=== PATIENT | female | born 1990 | race Two or more races ===

== ENCOUNTER 2018-08-21 12:08 | Outpatient (CLI) | payer OTHER, MEDICAID ==
--- NOTE | 2018-08-22 22:06 | Ultrasound Report ---
Reason: TEST POSITIVE Procedure Date: 08/21/2018 Accession Number: [id number] / [id number] Procedure: US - OB First Trimester CPT Code: FULL RESULT: EXAM: FIRST TRIMESTER OBSTETRIC ULTRASOUND (Less than 11 weeks) EXAM DATE: 08/21/2018 01:00 PM. CLINICAL HISTORY: test positive. LMP: 06/30/2018. COMPARISONS: None. TECHNIQUE: Transabdominal only ultrasound examination with static image documentation. CLINICAL DATES: EGA 7 weeks 3 days with AVERY 04/06/2019 based on LMP. ASSESSMENT: Gestational Sac: Single intrauterine. Embryo: CRL (crown-rump length) 8 mm = 6 weeks 6 days with an AVERY of 04/10/2019. Cardiac activity: 145 beats per minute. Yolk sac: 3 mm. Amniotic fluid: Not accurately assessed at this gestational age. Early placenta: Not visible at this gestational age. Other: No perigestational fluid collection demonstrated. MATERNAL STRUCTURES: Uterus: Anteverted. Unremarkable. Cervix: Closed. Right Ovary/Adnexa: The ovary measures 6.3 x 2.4 x 4.3 cm, volume 33.7 cc. At least 2 hypoechoic right ovarian cysts measuring 2.8 x 2 x 2.4 cm and 2.9 x 2.5 x 3.1 cm respectively. No concerning features are noted. Otherwise, right ovary and adnexa are normal. Left Ovary/Adnexa: The ovary measures 3.3 x 2.3 x 2.7 cm, volume 10.9 cc. Hypoechoic left ovarian cyst measures 2.8 x 2 x 2.4 cm. No mural nodules or thickened septations are noted. Free Fluid: None. Other: None. IMPRESSION: 1. Single viable intrauterine at EGA 6 weeks 6 days with AVERY 04/10/2019 based on crown-rump length, which is concordant with clinical dates. 2. Assigned dating is AVERY 04/06/2019 based on LMP. 3. No complications such as a subchorionic hemorrhage. 4. Hypoechoic bilateral ovarian cysts without concerning features. Otherwise, both ovaries and adnexa are normal. RADIA
== END 2018-08-21 12:09 | disposition home or self-care (01) ==
LOC: DI 12:08
PROVIDERS: ATTEND Nurse Practitioner Obstetrics & Gynecology
DX: O34.81 Maternal care for other abnormalities of pelvic organs, first trimester (principal); N83.202 Unspecified ovarian cyst, left side; N83.201 Unspecified ovarian cyst, right side; Z3A.01 Less than 8 weeks gestation of pregnancy
CPT/HCPCS: 76801

== ENCOUNTER 2018-09-22 16:36 | Outpatient (CLI) | payer OTHER, MEDICAID ==
[2018-09-23 15:04] LABS: MUDS CUTOFF CONCENTRATIONS CUTOFF CONC BELOW:
[2018-09-23 15:11] LABS: BILIRUBIN,URINE NEGATIVE (NEGATIVE); GLUCOSE, URINE (UA) NEGATIVE (NEGATIVE); KETONES,URINE (UA) NEGATIVE (NEGATIVE); LEUKOCYTE ESTERASE, URINE NEGATIVE (NEGATIVE); NITRITE,URINE NEGATIVE (NEGATIVE); OCCULT BLOOD,URINE NEGATIVE (NEGATIVE); PROTEIN,URINE NEGATIVE (NEGATIVE); UROBILINOGEN,URINE 0.2 (NORMAL) E.U./dL (NORMAL)
[2018-09-23 15:13] LABS: CLARITY,URINE CLOUDY (CLEAR)
[2018-09-23 15:20] LABS: RBC,URINE None Seen /HPF (0-5); SQUAMOUS EPITHELIAL CELL,UR RARE Squamous (<= Few)
[2018-09-23 15:21] LABS: AMORPHOUS SEDIMENT,UR Few /LPF; BACTERIA,URINE None Seen /HPF (None Seen)
[2018-09-23 15:22] LABS: AMPHETAMINE SCREEN,URINE NEGATIVE (NEGATIVE); BENZODIAZEPINES SCREEN, URINE NEGATIVE (NEGATIVE); COCAINE SCREEN URINE NEGATIVE (NEGATIVE); METHADONE SCREEN, URINE NEGATIVE (NEGATIVE); METHAMPHETAMINES SCREEN, URINE NEGATIVE (NEGATIVE); OPIATE SCREEN, URINE NEGATIVE (NEGATIVE); OXYCODONE SCREEN, URINE NEGATIVE (NEGATIVE); PROPOXYPHENE SCREEN, URINE NEGATIVE (NEGATIVE); TRICYCLIC ANTIDEPRESSANT,URINE NEGATIVE (NEGATIVE)
[2018-09-23 20:26] LABS: TRICHOMONAS VAGINALIS DNA NEGATIVE (NEGATIVE)
== END 2018-09-22 23:59 | disposition home or self-care (01) ==
LOC: LAB.R 16:36
PROVIDERS: ATTEND Nurse Practitioner Obstetrics & Gynecology
DX: Z36.89 Encounter for other specified antenatal screening (principal)
CPT/HCPCS: 80306; 81001; 81599; 85025; 86762; 86803; 86850; 86900; 86901; 87086; 87340; 87389; 87491; 87591; 87661

== ENCOUNTER 2018-09-23 16:54 | Outpatient (CLI) | payer OTHER, MEDICAID ==
[2018-09-23 17:09] LABS: BASOPHILS % (AUTO) 0.4 %; EOSINOPHILS % (AUTO) 0.2 %; HGB - HEMOGLOBIN 11.5 g/dL (12.0-16.0); LYMPHOCYTES # (AUTO) 2.2 10^3/uL (1.5-3.5); MEAN CORPUSCULAR HEMOGLOBIN 26.6 pg (27.0-31.0); MEAN CORPUSCULAR HGB CONC 32.6 g/dL (32.0-36.0); MEAN CORPUSCULAR VOLUME 81.7 fL (81.0-99.0); MONOCYTES # (AUTO) 0.5 10^3/uL (0.0-1.0); MONOCYTES % (AUTO) 5.3 %; NEUTROPHILS # (AUTO) 6.5 10^3/uL (1.5-6.6); NEUTROPHILS % (AUTO) 69.7 %; PLT - PLATELET COUNT 284 10^3/uL (130-450); RED BLOOD COUNT 4.32 10^6/uL (4.20-5.40); RED CELL DISTRIBUTION WIDTH 16.5 % (12.0-15.0); WHITE BLOOD COUNT 9.4 x10^3/uL (4.8-10.8)
[2018-09-24 13:25] LABS: HEPATITIS C ANTIBODY NON-REACTIVE (NON-REACTIVE)
[2018-09-24 13:27] LABS: HIV AG/AB 4TH GEN NON-REACTIVE (NON-REACTIVE)
[2018-09-24 13:30] LABS: HEPATITIS B SURFACE ANTIGEN NON-REACTIVE (NON-REACTIVE)
== END 2018-09-23 16:55 | disposition home or self-care (01) ==
LOC: LAB 16:54
PROVIDERS: ATTEND Nurse Practitioner Obstetrics & Gynecology
DX: Z36.89 Encounter for other specified antenatal screening (principal)
CPT/HCPCS: 36415; 80306; 81001; 81599; 85025; 86592; 86762; 86803; 86850; 86900; 86901; 87340; 87389; 87491; 87591; 87661

== ENCOUNTER 2018-10-26 08:22 | Outpatient (CLI) | payer OTHER, MEDICAID ==
[2018-10-26 09:09] LABS: VBG PH 7.381 (7.31-7.41)
[2018-10-26 09:25] LABS: ALBUMIN 3.4 g/dL (3.2-5.5); BILIRUBIN,TOTAL 0.6 mg/dL (0.2-1.0); CREATININE 0.6 mg/dL (0.4-1.0); TOTAL PROTEIN 6.7 g/dL (6.7-8.2)
[2018-10-26 09:35] LABS: FERRITIN 8.5 ng/mL (11.0-306.8)
[2018-10-26 10:17] LABS: FOLATE > 49.60 ng/mL (5.90 - >24.8)
== END 2018-10-26 08:23 | disposition home or self-care (01) ==
LOC: LAB 08:22
PROVIDERS: ATTEND Obstetrics & Gynecology
DX: O09.899 Supervision of other high risk pregnancies, unspecified trimester (principal); Z98.84 Bariatric surgery status
CPT/HCPCS: 36415; 80053; 81511; 81599; 82306; 82330; 82607; 82728; 82746; 83540; 84466

== ENCOUNTER 2018-11-03 10:14 | Outpatient (CLI) | payer OTHER, MEDICAID ==
--- NOTE | 2018-11-08 09:56 | Ultrasound Report ---
Reason: SCREENING,SUPERVISION OF OTHER HIGH RISK Procedure Date: 11/03/2018 Accession Number: [id number] / [id number] Procedure: US - OB Detailed Eval CPT Code: FULL RESULT: EXAM: COMPLETE OBSTETRICAL ULTRASOUND EXAM DATE: 11/03/2018 10:19 AM. CLINICAL HISTORY: anatomic survey. COMPARISON: 08/21/2018. TECHNIQUE: Real-time sonographic evaluation of the fetus performed by the crop or livestock tenant farmer. Multiple employment representative static images were saved for review. Transabdominal imaging only. DATING: Established EGA 18 weeks 0 days with AVERY 04/06/2019 based on LMP. EGA 17 weeks 3 days with AVERY 04/10/2019 based on prior ultrasound. EGA 17 weeks 4 days with AVERY 04/09/2019 based on the current ultrasound. GENERAL EVALUATION Espinosa . Cardiac activity: 153 bpm. movement: Visualized. Presentation: Variable. Placenta: Posterior position. No evidence for previa. Umbilical cord: 3 vessel cord. Central placental cord origin. Amniotic fluid: Subjectively normal. MVP 3.0 cm. RAVI = 9.0 cm. BIOMETRY Bi-Parietal Diameter (BPD): 3.45 cm, 16 weeks 5 days Head Circumference (HC): 14.08 cm, 17 weeks 3 days Abdominal Circumference (AC): 12.46 cm, 18 weeks 1 day Femur Length (FL): 2.59 cm, 17 weeks 6 days Estimated Weight: 214 g, 37.6 percentile. ANATOMY The intracranial structures, profile, spine, 4 chamber heart and left ventricular outflow tract, stomach, abdominal wall and cord insertion, diaphragm, bladder, and extremities were visualized and demonstrate no abnormality. The right ventricular outflow tract, kidneys, and nose/lips are not visualized. MATERNAL STRUCTURES Uterus: Unremarkable. Cervix: Long and closed. Cervical length 5.1 cm. Right ovary/adnexa: Unremarkable. Left ovary/adnexa: Unremarkable. Free fluid: None. IMPRESSION: 1. Espinosa live intrauterine with gestational age 17 weeks 4 days based on current ultrasound. 2. Estimated weight is within expected limits for assigned dating. 3. Normal anatomic survey except for anatomic limitations listed above. No anatomic abnormalities are detected at this time. RADIA
== END 2018-11-03 10:15 | disposition home or self-care (01) ==
LOC: DI 10:14
PROVIDERS: ATTEND Obstetrics & Gynecology
DX: O09.892 Supervision of other high risk pregnancies, second trimester (principal); Z3A.17 17 weeks gestation of pregnancy; Z36.89 Encounter for other specified antenatal screening; Z98.84 Bariatric surgery status
CPT/HCPCS: 76811

== ENCOUNTER 2018-11-13 08:52 | Outpatient (CLI) | payer OTHER, MEDICAID ==
--- NOTE | 2018-11-18 05:38 | Ultrasound Report ---
Reason: SUPERVISION OF OTHER HIGH RISK , ANTENATA Procedure Date: 11/13/2018 Accession Number: [id number] / [id number] Procedure: US - OB F/U or Repeat CPT Code: FULL RESULT: EXAM: FOLLOW-UP OBSTETRICAL ULTRASOUND EXAM DATE: 11/13/2018 09:52 AM. CLINICAL HISTORY: Incomplete anatomy COMPARISON: 11/03/2018. TECHNIQUE: Real-time sonographic evaluation of the fetus performed by the checking department supervisor. Multiple service center representative static images were saved for review. DATING: Established EGA 19 weeks 3 days with AVERY 04/06/2019 based on LMP. EGA weeks/days with AVERY based on LMP/prior ultrasound/other. EGA weeks/days with AVERY based on the current ultrasound. GENERAL EVALUATION Espinosa . Cardiac activity: 150 bpm. movement: Visualized. Presentation: Cephalic. Placenta: Posterior position. Amniotic fluid: Normal. RAVI 9 cm. MVP 3.9 cm. ANATOMY The right ventricular outflow tract, kidneys, nose and lips appear unremarkable. IMPRESSION: 1. Unremarkable completion of the anatomic survey. RADIA
== END 2018-11-13 08:53 | disposition home or self-care (01) ==
LOC: DI 08:52
PROVIDERS: ATTEND Obstetrics & Gynecology
DX: O09.892 Supervision of other high risk pregnancies, second trimester (principal); Z36.89 Encounter for other specified antenatal screening; Z3A.19 19 weeks gestation of pregnancy
CPT/HCPCS: 76816

== ENCOUNTER 2019-01-13 11:49 | Outpatient (CLI) | payer OTHER, MEDICAID ==
[2019-01-13 12:14] LABS: HGB - HEMOGLOBIN 10.5 g/dL (12.0-16.0); MEAN CORPUSCULAR HEMOGLOBIN 28.2 pg (27.0-31.0); MEAN CORPUSCULAR HGB CONC 32.3 g/dL (32.0-36.0); MEAN CORPUSCULAR VOLUME 87.1 fL (81.0-99.0); MEAN PLATELET VOLUME 10.8 fL (7.9-10.8); RED BLOOD COUNT 3.73 10^6/uL (4.20-5.40); RED CELL DISTRIBUTION WIDTH 13.2 % (12.0-15.0); WHITE BLOOD COUNT 8.7 x10^3/uL (4.8-10.8)
[2019-01-13 16:56] LABS: HB2 TOTAL 10.5 g/dL; HEMOGLOBIN A1C 0.38 g/dL; HEMOGLOBIN A1C % 5.5 % (4.6-6.2)
== END 2019-01-13 11:50 | disposition home or self-care (01) ==
LOC: LAB 11:49
PROVIDERS: ATTEND Nurse Practitioner Obstetrics & Gynecology
DX: Z36.89 Encounter for other specified antenatal screening (principal)
CPT/HCPCS: 36415; 83036; 85027; 86850

== ENCOUNTER 2019-01-18 11:35 | Outpatient (CLI) | payer OTHER, MEDICAID ==
--- NOTE | 2019-01-19 09:39 | Ultrasound Report ---
Reason: SUPERVISION OF HIGH RISK PREG, HX BARIATRIC SURG Procedure Date: 01/18/2019 Accession Number: [id number] / [id number] Procedure: US - OB F/U or Repeat CPT Code: Final Report FULL RESULT: EXAM: FOLLOW-UP OBSTETRICAL ULTRASOUND EXAM DATE: 01/18/2019 01:08 PM. CLINICAL HISTORY: Supervision of high risk , history of bariatric surgery. COMPARISON: OB F/U OR REPEAT 12/22/2018 3:11 PM. TECHNIQUE: Real-time sonographic evaluation of the fetus performed by the new order clerk. Multiple brewery representative static images were saved for review. DATING: Established EGA 28 weeks 6 days with AVERY 04/06/2019 based on working due date/LMP. EGA 28 weeks 4 days with AVERY 04/08/2019 based on the current ultrasound. GENERAL EVALUATION Espinosa . Cardiac activity: 151 bpm. movement: Visualized. Presentation: Cephalic. Placenta: Posterior position. Amniotic fluid: Normal. RAVI 13.8 cm. MVP 3.8 cm. BIOMETRY Bi-Parietal Diameter (BPD): 7.1 cm, 28 weeks 6 days Head Circumference (HC): 26.9 cm, 29 weeks 2 days Abdominal Circumference (AC): 23.0 cm, 27 weeks 3 days Femur Length (FL): 5.4 cm, 28 weeks 5 days Estimated Weight: 1176 g, 15th percentile for 20 weeks 6 days. MATERNAL STRUCTURES Cervix is long and closed, 4.4 cm transabdominally. IMPRESSION: 1. Espinosa live intrauterine with gestational age 28 weeks 6 days based on LMP. 2. Estimated weight is within expected limits for assigned dating. 3. Normal interval growth compared to date of prior biometry. RADIA
== END 2019-01-18 11:36 | disposition home or self-care (01) ==
LOC: DI 11:35
PROVIDERS: ATTEND Nurse Practitioner Obstetrics & Gynecology
DX: O09.899 Supervision of other high risk pregnancies, unspecified trimester (principal); Z3A.28 28 weeks gestation of pregnancy; Z98.84 Bariatric surgery status
CPT/HCPCS: 76816

== ENCOUNTER 2019-03-01 14:49 | Outpatient (CLI) | payer OTHER, MEDICAID ==
[2019-03-01 15:07] LABS: VBG PH 7.443 (7.31-7.41)
[2019-03-01 15:27] LABS: ALBUMIN 3.4 g/dL (3.2-5.5); BILIRUBIN,TOTAL 0.6 mg/dL (0.2-1.0); CREATININE 0.6 mg/dL (0.4-1.0); TOTAL PROTEIN 6.9 g/dL (6.7-8.2)
== END 2019-03-01 14:50 | disposition home or self-care (01) ==
LOC: LAB 14:49
PROVIDERS: ATTEND Nurse Practitioner Obstetrics & Gynecology
DX: Z98.84 Bariatric surgery status (principal)
CPT/HCPCS: 36415; 80053; 82306; 82330; 82728; 82746; 83540; 84466

== ENCOUNTER 2019-03-04 08:40 | Outpatient (CLI) | payer OTHER, MEDICAID ==
--- NOTE | 2019-03-04 10:32 | Ultrasound Report ---
Reason: HX OF BARIATRIC SURGERY, SUPER OF HIGH RISK PREG Procedure Date: 03/04/2019 Accession Number: [id number] / [id number] Procedure: US - OB F/U or Repeat CPT Code: Final Report FULL RESULT: EXAM: FOLLOW-UP OBSTETRICAL ULTRASOUND EXAM DATE: 03/04/2019 08:42 AM. CLINICAL HISTORY: Third trimester and unigravida female. High risk . COMPARISON: OB F/U OR REPEAT 01/18/2019 1:08 PM. TECHNIQUE: Real-time sonographic evaluation of the fetus performed by the ribbon lap machine tender. Additional transvaginal imaging to more accurately evaluate cervical length/placental position/etc. Multiple product support representative static images were saved for review. DATING: Established EGA 35 weeks and 2 days with AVERY 04/06/2019 based on LMP. EGA 34 weeks 5 days with AVERY 04/10/2019 based on prior ultrasound. EGA 33 week 5 days with AVERY 04/17/2019 based on the current ultrasound. GENERAL EVALUATION Espinosa . Cardiac activity: 136 bpm. movement: Visualized. Presentation: Cephalic. Placenta: Posterior position. Amniotic fluid: Normal. RAVI 8.8 cm. MVP 3.6 cm. BIOMETRY Bi-Parietal Diameter (BPD): 8.5 cm, 34 weeks 2 days Head Circumference (HC): 30.9 cm, 34 weeks 4 days Abdominal Circumference (AC): 28.8 cm, 32 weeks 5 days Femur Length (FL): 6.5 cm, 33 weeks 2 days Estimated Weight: 2152 g, 7th percentile for 35 week 2 days, previously 15 percentile. Umbilical cord Doppler: Umbilical cord Doppler analysis was done measuring 2.9 approximately, 3.7 in the midportion, and 2.8 distally. IMPRESSION: 1. Espinosa live intrauterine with gestational age 35 weeks 2 days based on established dates. 2. Small for gestational age suggesting potential intrauterine growth restriction with estimated weight now corresponding to the 7th percentile rank, 15th percentile rank previously. 3. cord Doppler demonstrates S/D ratios in the 50-95th percentile rank and the proximal and distal segment. S/D ratio measures greater than 95th percentile rank in the midportion, however, this may be due to suboptimal tracing. Close clinical follow-up is recommended. SHA The critical result notification system was initiated by Dr. Cynthia Nelson at 10:18 AM on 03/04/2019. The above critical result findings were discussed with Keila Oviedo's RN Angelica Gregorio by Dr. Cynthia Nelson at 10:31 AM on 03/04/2019.
== END 2019-03-04 08:41 | disposition home or self-care (01) ==
LOC: DI 08:40
PROVIDERS: ATTEND Nurse Practitioner Obstetrics & Gynecology
DX: O36.5930 Maternal care for other known or suspected poor fetal growth, third trimester, not applicable or unspecified (principal); Z3A.35 35 weeks gestation of pregnancy; O09.893 Supervision of other high risk pregnancies, third trimester; Z98.84 Bariatric surgery status
CPT/HCPCS: 76816

== ENCOUNTER 2019-03-11 09:01 | Outpatient (CLI) | payer OTHER, MEDICAID ==
[2019-03-11 09:28] VITALS: BP 125/77
--- NOTE | 2019-03-11 16:19 | PROCEDURE REPORT ---
- HPI Diagnosis/Indication for NST: Other Current EDU 04/06/19 Gestation 36 Weeks and 2 Days 1 Para 0 Vital Signs Temperature 37.2 C 03/11/19 09:15 Heart Rate 75 03/11/19 09:15 Respiratory Rate 16 03/11/19 09:15 Blood Pressure 125/77 03/11/19 09:15 O2 Saturation 99 03/11/19 09:15 Temperature 37.2 C 03/11/19 09:15 Heart Rate 75 03/11/19 09:15 Respiratory Rate 16 03/11/19 09:15 Blood Pressure 125/77 03/11/19 09:15 O2 Saturation 99 03/11/19 09:15 - NST Procedure NST Procedure Start Date 03/11/19 Start Time 09:13 Stop Time 09:35 Vibroacoustic Stimulation Used No Patient States Movement Yes - Results and Plan Findings/Impression: Reta presents today to [facility] at 36.2wks gestation for scheduled NST due to s uspected IUGR. NST reactive. Baseline 140s, moderate variability, +accels, no decels No contractions appreciated via tocometry. FINAL DIAGNOSIS: 28yo @ 36.2wks gestation Suspected IUGR
== END 2019-03-11 09:45 | disposition home or self-care (01) ==
LOC: WFO 09:01 → FBP 09:06 → WFO 09:45
PROVIDERS: ATTEND Nurse Practitioner Obstetrics & Gynecology
DX: Z34.03 Encounter for supervision of normal first pregnancy, third trimester (principal)
CPT/HCPCS: 59025

== ENCOUNTER 2019-03-16 08:00 | Outpatient (CLI) | payer OTHER, MEDICAID ==
[2019-03-16 20:28] LABS: TRICHOMONAS VAGINALIS DNA NEGATIVE (NEGATIVE)
== END 2019-03-16 23:59 | disposition home or self-care (01) ==
LOC: LAB.R 08:00
PROVIDERS: ATTEND Nurse Practitioner Obstetrics & Gynecology
DX: Z36.85 Encounter for antenatal screening for Streptococcus B (principal); Z11.3 Encounter for screening for infections with a predominantly sexual mode of transmission
CPT/HCPCS: 87491; 87591; 87661; 87797

== ENCOUNTER 2019-03-22 08:33 | Outpatient (CLI) | payer OTHER, MEDICAID ==
[2019-03-22 08:47] VITALS: BP 128/77
--- NOTE | 2019-03-22 13:03 | PROCEDURE REPORT ---
- HPI Diagnosis/Indication for NST: Intrauterine growth restriction Current EDU 04/06/19 Gestation 37 Weeks and 6 Days 1 Para 0 Vital Signs Temperature 36.9 C 03/22/19 08:46 Heart Rate 69 03/22/19 08:46 Respiratory Rate 18 03/22/19 08:46 Blood Pressure 128/77 03/22/19 08:46 O2 Saturation 99 03/22/19 08:46 Temperature 36.9 C 03/22/19 08:46 Heart Rate 69 03/22/19 08:46 Respiratory Rate 18 03/22/19 08:46 Blood Pressure 128/77 03/22/19 08:46 O2 Saturation 99 03/22/19 08:46 - NST Procedure NST Procedure Start Date 03/22/19 Start Time 08:49 Stop Time 09:19 Vibroacoustic Stimulation Used No Patient States Movement Yes - Results and Plan Plan: Reta presents today for scheduled NST secondary to intrauterine growth restriction noted on growth and RAVI at 36wks. MFM f/u revealed growth WNL. NST performed 03/22/2019 NST read 03/22/2019 NST reactive, FHR baseline 140s, moderate variability, + accels no decels Pt released home with precautions. Advised to keep her regularly scheduled visit today 03/22/2019. Pt verbalized understanding and agrees to above plan. She denies further questions or concerns at this time.
== END 2019-03-22 09:25 | disposition home or self-care (01) ==
LOC: WFO 08:33 → FBP 08:37 → WFO 09:25
PROVIDERS: ATTEND Nurse Practitioner Obstetrics & Gynecology
DX: O36.5930 Maternal care for other known or suspected poor fetal growth, third trimester, not applicable or unspecified (principal); Z3A.37 37 weeks gestation of pregnancy
CPT/HCPCS: 59025

== ENCOUNTER 2019-03-29 09:00 | Outpatient (CLI) | payer OTHER, MEDICAID ==
[2019-03-29 09:42] VITALS: BP 131/80
--- NOTE | 2019-03-29 13:49 | PROCEDURE REPORT ---
- HPI Diagnosis/Indication for NST: Intrauterine growth restriction Current EDU 04/06/19 Gestation 38 Weeks and 6 Days 1 Para 0 Vital Signs Temperature 36.8 C 03/29/19 09:15 Heart Rate 68 03/29/19 09:15 Respiratory Rate 18 03/29/19 09:15 Blood Pressure 131/80 H 03/29/19 09:15 O2 Saturation 100 03/29/19 09:15 Temperature 36.8 C 03/29/19 09:15 Heart Rate 68 03/29/19 09:15 Respiratory Rate 18 03/29/19 09:15 Blood Pressure 131/80 H 03/29/19 09:15 O2 Saturation 100 03/29/19 09:15 - NST Procedure NST Procedure Start Date 03/29/19 Start Time 09:13 Stop Time 09:34 Patient States Movement Yes - Results and Plan Plan: Reta presents to [facility] for scheduled NST secondary to previous diagnosis of IUGR which has been cleared with MFM and was ruled out as IUGR. Twice weekly NSTs have continued. NST reactive. NST baseline 130s, moderate variability, + accels, no decels Pt released home with precautions. Advised to keep f/u visit which is scheduled for tomorrow. Pt verbalized understanding and denies further questions or concerns at this time.
== END 2019-03-29 09:41 | disposition home or self-care (01) ==
LOC: WFO 09:00 → FBP 09:07 → WFO 09:41
PROVIDERS: ATTEND Nurse Practitioner Obstetrics & Gynecology
DX: O36.5930 Maternal care for other known or suspected poor fetal growth, third trimester, not applicable or unspecified (principal); Z3A.38 38 weeks gestation of pregnancy
CPT/HCPCS: 59025

== ENCOUNTER 2019-04-01 08:51 | Outpatient (CLI) | payer OTHER, MEDICAID ==
[2019-04-01 09:13] VITALS: BP 122/85
--- NOTE | 2019-04-22 12:21 | PROCEDURE REPORT ---
- HPI Diagnosis/Indication for NST: Intrauterine growth restriction Current EDU 04/06/19 Gestation 39 Weeks and 2 Days 1 Para 0 Vital Signs Temperature 37.1 C 04/01/19 09:06 Heart Rate 64 04/01/19 09:06 Respiratory Rate 16 04/01/19 09:06 Blood Pressure 122/85 H 04/01/19 09:06 O2 Saturation 99 04/01/19 09:06 Temperature 37.1 C 04/01/19 09:06 Heart Rate 64 04/01/19 09:06 Respiratory Rate 16 04/01/19 09:06 Blood Pressure 122/85 H 04/01/19 09:06 O2 Saturation 99 04/01/19 09:06 - NST Procedure NST Procedure Start Date 04/01/19 Start Time 09:15 Stop Time 09:45 Vibroacoustic Stimulation Used No Patient States Movement Yes - Results and Plan Findings/Impression: Reactive NST. Plan: Induction at 39 weeks
== END 2019-04-01 09:53 | disposition home or self-care (01) ==
LOC: WFO 08:51 → FBP 08:56 → WFO 09:53
PROVIDERS: ATTEND Obstetrics & Gynecology
DX: O36.5930 Maternal care for other known or suspected poor fetal growth, third trimester, not applicable or unspecified (principal); Z3A.39 39 weeks gestation of pregnancy
CPT/HCPCS: 59025

== ENCOUNTER 2019-04-03 14:11 | Outpatient (CLI) | payer OTHER, MEDICAID ==
[2019-04-03 14:28] VITALS: BP 130/79
--- NOTE | 2019-04-03 18:41 | Ultrasound Report ---
Reason: C/O decreased FM Procedure Date: 04/03/2019 Accession Number: [id number] / [id number] Procedure: US - OB Biophysical Profile CPT Code: Final Report FULL RESULT: EXAM: BIOPHYSICAL PROFILE EXAM DATE: 04/03/2019 05:39 PM. CLINICAL HISTORY: C/O decreased FM. COMPARISON: None. TECHNIQUE: Real-time sonographic evaluation of the fetus performed by the clinical programmer. Multiple telemarketing sales representative static images were saved for review. DATING: Established EGA 39 weeks/4 days with AVERY [id number]. GENERAL EVALUATION Espinosa . Cardiac activity: 136 bpm. movement: Visualized. Presentation: Cephalic. Placenta: Posterior position. No evidence for previa or abruption. Amniotic fluid: Normal. RAVI 13.9 cm. MVP 3.7 cm. BIOPHYSICAL PROFILE Breathing = 2 Movement = 2 Tone = 2 Amniotic Fluid = 2 Total 09/16 IMPRESSION: 1. Espinosa live intrauterine with gestational age 39 weeks 4 days. 2. Biophysical profile score 8 of 8. SHA
--- NOTE | 2019-04-03 19:48 | PROVIDER PROGRESS NOTE ---
- HPI Chief Complaint: Decreased movement Current : Current EDU 04/06/19 Gestation 39 Weeks and 4 Days 1 Para 0 Vital Signs Temperature 36.8 C 04/03/19 14:27 Heart Rate 78 04/03/19 14:27 Respiratory Rate 16 04/03/19 14:27 Blood Pressure 130/79 04/03/19 14:27 O2 Saturation 99 04/03/19 14:27 Temperature 36.8 C 04/03/19 14:32 Heart Rate 78 04/03/19 14:32 Respiratory Rate 18 04/03/19 14:32 Blood Pressure 130/79 04/03/19 14:32 O2 Saturation 99 04/03/19 14:32 - Procedures OB Procedure Performed: NST Diagnosis/Indication for NST: Decreased movement NST Procedure: NST Procedure Start Date 04/03/19 Start Time 14:26 Stop Time 15:26 Vibroacoustic Stimulation Used No Patient States Movement No: none since am - Plan Plan: Reta presents to [facility] with complaints of contractions which started early this morning in addition to some light vaginal spotting. In addition she reports she has felt decreased movement since this morning. She did feel the baby move a normal amount last night. NST performed 04/03/2019 NST read 04/03/2019 NST initially minimal variability, only 10 x 10 accelerations noted, no decelerations. BPP ordered and was noted to be 8/8. Upon arrival SVE 2/60/-3, posterior. While awaiting BPP results the pt was placed back on monitoring and was then noted to reactive. Baseline 140s, moderate variability, + accels, no decels Repeat SVE unchanged and pt released home with precautions. She has been getting twice weekly NSTs for the past several weeks due to suspected IUGR which was ruled out by MFM consult. She has NST scheduled 04/05/2019 and she was advised to keep this appt.
[2019-04-03] MEDS ORDERED: ROPIVACAINE 0.2% 200 MG/100 ML BAG EP ONE (23:53)
== END 2019-04-03 18:05 | disposition home or self-care (01) ==
LOC: WFO 14:11 → FBP 14:15 → WFO 18:05
PROVIDERS: ATTEND Nurse Practitioner Obstetrics & Gynecology
DX: O36.8130 Decreased fetal movements, third trimester, not applicable or unspecified (principal); Z3A.39 39 weeks gestation of pregnancy
CPT/HCPCS: 59025; 76819; 99213; 99214

== ENCOUNTER 2019-04-03 22:03 | Inpatient (IN) | payer OTHER, MEDICAID ==
[2019-04-03] MEDS ORDERED: SODIUM CHLORIDE FLUSH 0.9% 10 ML SYRINGE IVP PRN (22:50)
[2019-04-03 23:13] LABS: BASOPHILS % (AUTO) 0.3 %; EOSINOPHILS % (AUTO) 0.2 %; HGB - HEMOGLOBIN 12.7 g/dL (12.0-16.0); LYMPHOCYTES # (AUTO) 2.1 10^3/uL (1.5-3.5); LYMPHOCYTES % (AUTO) 23.4 %; MEAN CORPUSCULAR HEMOGLOBIN 28.9 pg (27.0-31.0); MEAN CORPUSCULAR HGB CONC 33.5 g/dL (32.0-36.0); MEAN CORPUSCULAR VOLUME 86.1 fL (81.0-99.0); MONOCYTES # (AUTO) 0.6 10^3/uL (0.0-1.0); MONOCYTES % (AUTO) 6.2 %; NEUTROPHILS # (AUTO) 6.2 10^3/uL (1.5-6.6); NEUTROPHILS % (AUTO) 69.3 %; PLT - PLATELET COUNT 210 10^3/uL (130-450); RED CELL DISTRIBUTION WIDTH 15.2 % (12.0-15.0); WHITE BLOOD COUNT 8.9 x10^3/uL (4.8-10.8)
[2019-04-03] MEDS: LACTATED RINGERS 1,000 ML IV SCH (23:22)
--- NOTE | 2019-04-04 00:32 | ANESTHESIA ---
Pre-Anesthesia VS, & Labs - Diagnosis Active labor - Procedure Continuous labor epidural Height 5 ft 3 in Weight (kg) 83.915 kg - NPO Other - Is Patient ?: Yes - Lab Results Current Lab Results: Laboratory Tests 04/03/19 22:50: WBC 8.9, RBC 4.40, Hgb 12.7, Hct 37.9, MCV 86.1, MCH 28.9, MCHC 33.5, RDW 15.2 H, Plt Count 210, MPV 13.0 H, Neut # (Auto) 6.2, Lymph # (Auto) 2.1, [place] # (Auto) 0.6, Eos # (Auto) 0.0, Baso # (Auto) 0.0, Absolute Nucleated RBC 0.00, Nucleated RBC % 0.0 Fish Bones: 04/03/19 22:50 Home Medications and Allergies Active Medications Lactated Ringer's (Lr) 1,000 mls @ 150 mls/hr IV .[id number] [facility] Last Admin: 04/03/19 23:22 Dose: 150 mls/hr Sodium Chloride (Normal Saline Flush 0.9%) 10 ml IVP PRN PRN PRN Reason: NEEDED PER PROVIDER ORDERS Sodium Chloride (Normal Saline Flush 0.9%) 10 ml IVP 0100,0900,1700 [facility] Anes History & Medical History - Anesthetic History Anesthesia Complications: reports: No previous complications Family history of Anesthesia Complications: Denies Family history of Malignant Hyperthermia: Denies - Medical History Cardiovascular: reports: None Pulmonary: reports: None Gastrointestinal: reports: None Urinary: reports: None Neuro: reports: None Musculoskeletal: reports: None Endocrine/Autoimmune: reports: None Blood Disorders: reports: None Skin: reports: None Smoking Status: Never smoker Psychosocial: reports: No issues indicated Exam General: Alert, Oriented x3, Cooperative, Moderate distress Dental: WNL Mouth Opening: Greater than 4 Fingerbreadths Neck Mobility: Normal Mallampati classification: II Thyromental Distance: greater than 6 cm Plan Anesthesia Type: Epidural Consent for Procedure(s) Verified and Reviewed: Yes Code Status: Attempt Resuscitation ASA classification: 2-Mild systemic disease Is this case an emergency?: Yes
[2019-04-04] MEDS ORDERED: ROPIVACAINE 0.2% 200 MG/100 ML BAG EP PRN (00:33)
[2019-04-04] MEDS ORDERED: METOCLOPRAMIDE 10 MG/2 ML VIAL IVP PRN (00:34)
[2019-04-04] MEDS ORDERED: ONDANSETRON 4 MG/2 ML VIAL IVP PRN ×2 (00:34)
[2019-04-04] MEDS ORDERED: ePHEDrine 50 MG/ML VIAL IVP PRN (00:34)
[2019-04-04] MEDS ORDERED: NALBUPHINE 10 MG/ML AMP IVP PRN ×2 (00:34)
[2019-04-04] MEDS ORDERED: diphenhydrAMINE INJ 50 MG/ML VIAL IVP PRN ×2 (00:34)
[2019-04-04] MEDS ORDERED: NALOXONE 0.4 MG/ML VIAL IVP PRN (00:34)
[2019-04-04] MEDS ORDERED: LACTATED RINGERS 500 ML IV ONE (00:34)
[2019-04-04] MEDS ORDERED: SODIUM CHLORIDE FLUSH 0.9% 10 ML SYRINGE IVP SCH (01:00)
[2019-04-04] MEDS: LACTATED RINGERS 1,000 ML IV SCH ×2 (01:19→09:24)
--- NOTE | 2019-04-04 02:39 | HISTORY & PHYSICAL EXAMINATION ---
Admit History - Visit Reason Visit Reason: Contractions - : 1 Parity: 0 Premature: 0 Ectopic: 0 : 0 Care: positive: [facility] Risk/History: positive: None Complications This : positive: None Smoking Status: Never smoker - Mother's Labs Mother's Blood Type: positive: A Mother's RH: positive: Positive GBS: positive: Group B Step Negative Rubella Status: positive: Immune Review of Systems - Constitutional Constitutional: denies: Fatigue, Chills, Malaise - Eyes Eyes: denies: Blurred vision, Spots in vision, Dipolpia - Cardiovascular Cariovascular: denies: Chest pain, Edema - Respiratory Respiratory: denies: SOB at rest - Gastrointestinal Gastrointestinal: denies: Change in bowel habits - Integumentary Integumentary: denies: Rash, Pruritis - Neurological Neurological: denies: Headache Physical - Abdominal Exam Contraction Frequency (min/apart): 2-4 Contraction Intensity: positive: Strong Uterine Resting Tone: positive: Soft - Monitoring Heart Rate Baseline: 130 Strip Review: positive: Category I - Presentation Presentation: positive: Vertex - Vaginal Exam Membranes: positive: Membranes intact Dilation (in cm): 4 Effacement (%): 100 Station: positive: -1 Cervical Position: positive: Midposition - Speculum Exam Speculum Exam Performed: positive: No Plan for Labor - Plan For Labor I expect patient to be DC'd or transferred within 96 hours.: Yes Plan for Labor: HPI: Reta is a 28yo @ 39.5wk gestation by 6wk U/S c/w LMP dating who presented on 04/03/2019 with complaints of contractions which have progressively increased in frequency and intensity since early yesterday morning. She reports the contractions began to become difficult to cope with at approximately 2100. She denies vaginal bleeding or leakage of fluid and reports +FM. Upon arrival she was noted to be 3/90/-3, vertex with bulging bag of chahal and was not coping well with contractions that occurred every 5-7 minutes. She was admitted for management and requested and epidural. FHR Category I. She has been a patient of [facility] through the duration of her which has been complicated by her history of bariatic surgery. She has had nutrition labs drawn every trimester which have remained WNL as well as q 4 week growth ultrasounds. Her growth ultrasounds remained within normal limits until 03/08/2019 at which time she was noted to have an EFW in the 7th percentile. Doppler flow studies were completed and WNL. An MFM consult was initiated and at that visit EFW was measuring 34th percentile and MFM ruled out IUGR. She has continued twice weekly NSTs since that time as a precautionary measure and these have all been reactive. Dating criteria: LMP 06/30/2018 Initial ultrasound @ 6.6wks gestation c/w LMP dating Serial exams consistently measuring size less than dates (refer to above HPI and serial growth U/S) OBHx: G1: Current Medications: PNV Allergies: PNV PMHx: Anemia Surgical Hx: Gastric sleeve 2013; Rt breast biopsy- benign 2015; breast reconstruction 2015 Social Hx: Never smoker, no ETOH or IVDA. 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 Family Hx: Dementia- father; bone cancer- PGM labs: A+/rubella immune Quad screen - negative Nutrition labs q trimester WNL Glucola deferred secondary to bariatric surgery hx -Fasting BG ranges from 81- 96; 1 hour pp ranging from 89-168. Reviewed target ranges and advised pt to continue tracking blood glucose and bring log with her to next visit. Advised limiting her intake of carbohydrates and sugars. GBS/GC CT NEG x 3 Ultrasounds: FAS 11/03/2018 WNL with the exception of poor visualization of RVOT, kidneys, and nose/lips. Posterior placenta, no previa. 3VC. F/u 11/13/2018 completion WNL Growth and RAVI 12/22/2018 EFW 13th percentile, RAVI 15.4; 01/18/2019 f/u growth and RAVI EFW 15th%tile, RAVI 13.8; 03/04/2019 Growth 7th percentile. Doppler flow demonstrates S/D ratios in the 50-95th percentile rank and the proximal and distal segment. S/D ratio measures greater than 95th percentile rank in the midportion. MFM consult initiated and twice weekly NSTs initiated. 03/08/2019 MFM ultrasound EFW 2631g (34th percentile) =WNL; abdominal circumference (14%) and is appropriate for gestational age. RAVI WNL. Posterior placenta, no previa. Immunizations: Tdap 01/12/2019 Influenza immunization 11/23/2018 Physical Exam: Normocephalic, atraumatic Heart RRR w/o M/G/R LUngs CTAB Abdomen gravid, soft, nontender EFW 2800g Contractions palpate moderate to strong every 4-5 min with soft resting tone FHR baseline 130s, moderate variability, + accels, no decels Most recent SVE 4/100/-1, vertex with bulging BOW Bilateral LE's no edema Assessment: 28yo @ 39.5wks gestation by LMP c/w 6.6wk U/S Active labor GBS neg Suspected IUGR r/o by [facility] growth ultrasound at 36wks gestation Plan: Admit for expectant management Epidural per pt request Continuous monitoring Consider AROM with next SVE Anticipate
--- NOTE | 2019-04-04 03:21 | PROVIDER PROGRESS NOTE ---
Labor Progress Note - Uterine Monitoring Uterine Monitoring Mode: positive: External toco Contraction Frequency (min/apart): 3-6 Contraction Intensity: positive: Strong Uterine Resting Tone: positive: Soft - Monitoring Monitor Mode: positive: External ultrasound Heart Rate Baseline: 130 Heart Rate Variability: positive: Moderate (6-25 bmp) Accelerations: positive: Present, 15x15 Decelerations: positive: None Strip Review: positive: Category I - Vaginal Exam Dilation (in cm): 5 Effacement (%): 100 Station: 0 Cervical Position: Anterior - Labor Progress Note Labor Progress Note/Additional Text: S: Feeling comfortable with epidural. Slightly right side lying position in bed. Mood is good. Not able to feel contractions. O: FHR baseline 130s, moderate variability, + accels, no decels Contractions palpate firm every 5-6 min with soft resting tone SVE 5/100/0, vertex AROM at 0318 noted to be a moderate amount of clear fluid A: 28yo @ 39.5wks gestation Active labor GBS neg P: Continue expectant management Continuous monitoring Encouraged position changes in bed Anticipate
--- NOTE | 2019-04-04 05:42 | PROVIDER PROGRESS NOTE ---
Labor Progress Note - Uterine Monitoring Uterine Monitoring Mode: positive: External toco Contraction Frequency (min/apart): 3 Contraction Intensity: positive: Strong Uterine Resting Tone: positive: Soft - Monitoring Monitor Mode: positive: External ultrasound Heart Rate Baseline: 130 Heart Rate Variability: positive: Moderate (6-25 bmp) Accelerations: positive: Present, 15x15 Decelerations: positive: None Strip Review: positive: Category I - Vaginal Exam Dilation (in cm): 6 Effacement (%): 100 Station: 0 - Labor Progress Note Labor Progress Note/Additional Text: S: Feeling increased pressure and discomfort with contractions. 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 Hoping some rotation on peanut ball can help relieve some of the pressure. O: FHR baseline 130s, moderate variability, + accels, no decels Contractions palpate strong every 3 minutes with soft resting tone SVE 6/100/0, vertex A: 28yo @ 39.5wks gestation Active labor GBS neg SROM x 2.5 hours P: Continue expectant management Continuous monitoring Encouraged rotation in bed on peanut ball every 30 minutes Anticipate
[2019-04-04] MEDS ORDERED: ROPIVACAINE 0.2% PF 20ML VIAL ONE (06:45)
[2019-04-04] MEDS ORDERED: fentaNYL 100 MCG/2 ML VIAL ONE (06:45)
--- NOTE | 2019-04-04 06:56 | CONSULTATION NOTE ---
Consultation Report: Called to remove air from line and give a top off bolus. Patient c/o severe labor pain and right kidney pain. Pump increased to 12 ml/hr and from 4 to 5 ml PCEA bolus dose. In addition, 6 ml of .2% Ropivicaine plus 100 mcg fentanyl given via epidural line after negative aspiration. 5 minutes later patient stated her pain was significantly reduced.
[2019-04-04] MEDS ORDERED: LIDOCAINE-MPF 1% 30 ML VIAL ONE (08:54)
[2019-04-04] MEDS ORDERED: OXYTOCIN/SODIUM CHLORIDE 500 ML IV ONE (08:56)
[2019-04-04] MEDS ORDERED: OXYTOCIN/SODIUM CHLORIDE 500 ML IV SCH (09:00)
--- NOTE | 2019-04-04 09:06 | CONSULTATION NOTE ---
Consultation Report: RN called and requested a bolus for the patient. Went into she the patient. She appears fairly comfortable, but complains of pain "in her back" with each contraction. She has a sensory level of t8/t7 on the left side and t12 on the right side. No motor block. Bolused her with about 6ml of 1% lidocain after a negative aspiration.
--- NOTE | 2019-04-04 10:44 | CONSULTATION NOTE ---
Consultation Report: Call to [phone] for uncontrolled pain with contractions (reports of anterior lip). Pt moving in bed in what appears to be pain. Sensory level appreciated at L1 Bilat. Full motor intact. Epidural dosed with 10cc 1% Lidocaine after negative aspiration in 2 5cc doses. MD at bedside at completion of injection for exam. Pt states mild relief of pain and tolerated exam. Pt tolerated exam that found her with full dilation/effacement and ready to push. VSS throughout. Will be immediately available if needed.
[2019-04-04] MEDS ORDERED: ONDANSETRON ODT 4 MG TABLET TL PRN (11:35)
[2019-04-04] MEDS ORDERED: SIMETHICONE CHEW 80 MG TABLET PO PRN (11:35)
[2019-04-04] MEDS ORDERED: LACTATED RINGERS 1,000 ML IV SCH (12:00)
[2019-04-04] MEDS: ACETAMINOPHEN 500 MG TABLET PO PRN ×2 (12:07→20:06)
[2019-04-04] MEDS: DOCUSATE SODIUM 100 MG CAPSULE PO PRN ×2 (12:07→18:09)
[2019-04-04] MEDS: IBUPROFEN 600 MG TABLET PO SCH ×2 (12:07→18:05)
--- NOTE | 2019-04-04 12:10 | DELIVERY NOTE ---
Delivery Note - Labor Labor: positive: Augmented by oxytocin - Delivery Method Delivery Method: positive: Spontaneous vaginal delivery - Presentation Presentation: positive: Vertex - Nuchal Cord Nuchal Cord: positive: None - Anesthetic Anesthetic Type: - Amniotic Fluid Description Amniotic Fluid Description: positive: Clear - Episiotomy Type Episiotomy Type: positive: None - Laceration Laceration: positive: 2nd degree - Suture Suture Type: positive: Vicryl Suture Size: positive: 4-0 - Delivery Outcome Delivery Outcome: positive: Livebirth - [place] : positive: Placed in direct skin contact with mother, Bulb syringe, Stimulated, Warmed, [place] used - Cord Cord: positive: 3 vessels - Estimated Blood Loss Estimated Blood Loss (in cc): 200 - Post Delivery Events Post Delivery Events: positive: No post delivery events - Delivery Comments (Free Text/Narrative) Delivery Comments (Free Text/Narrative): STAGE I: Reta is a 28yo admitted @ 39.5wk gestation by 6wk U/S c/w LMP dating. She presented on 04/03/2019 with complaints of contractions which have progressively increased in frequency and intensity since early 04/02/09 Reports the contractions began to become difficult to cope with at approximately 2100. She denies vaginal bleeding or leakage of fluid and reports +FM. Upon arrival she was noted to be 3/90/-3, vertex with bulging bag of chahal. Epidural for pain management. Pitocin for augmentation. GBS negative. Progressed to complete at 10:41. FHR Category I. STAGE II: Patient pushed well for 8 minutes to deliver a viable male infant form vertex position. There was a 65 second shoulder dystocia relieved with a combination of Jossue, delivery of the posterior arm and rotation of the posterior shoulder. Left arm was posterior. Infant was delivered to maternal abdomen. Cord was clamped x2 and cut after pulsations had ceased. No nuchal cord. Apgars were 8/8, weight 3220. STAGE III: Placenta delivered with manual expression. It was examined and found to be intact.Small 2nd degree midline laceration was repaired in the usual sterile fashion in layers with 4-0 vicryl. A first degree vaginal sidewall laceration was repaired with a single figure of 8 suture using 4-0 Vicryl. Good hemostasis was noted. EBL 200 cc
[2019-04-05] MEDS: IBUPROFEN 600 MG TABLET PO SCH ×3 (01:25→16:07)
[2019-04-05] MEDS: DOCUSATE SODIUM 100 MG CAPSULE PO PRN (10:20)
--- NOTE | 2019-04-05 10:36 | PROVIDER PROGRESS NOTE ---
Subjective - Prog Note Date Prog Note Date: 04/05/19 Prog Note Time: 09:00 - Subjective Subjective: Patient in shower. Will return for bedside assessment Objective - Vital Signs/Intake & Output Vital Signs: Vital Signs x48h Temp Pulse Resp BP Pulse Ox 04/05/19 04:49 98.4 F 70 18 117/93 H 98 Intake & Output: Intake & Output 04/02/19 04/03/19 04/04/19 04/05/19 23:59 23:59 23:59 23:59 Intake Total 2507.5 500 Output Total 1100 Balance 1407.5 500 - Lab Results Fish Bones: 04/03/19 22:50
--- NOTE | 2019-04-05 12:06 | PROVIDER PROGRESS NOTE ---
Subjective - Subjective Subjective: S: Bonding well with baby. without difficulty. Pain well controlled with oral medications. Urinating with difficulty. Feeling good. Bleeding decreased and is light. supportive at the bedside. O: BP 117/93, T 36.9, HR 70, RR 18 Heart RRR w/o M/G/R, lungs CTAB, abdomen soft and nontedner with fundus firm at U-1, bilateral LE's no edema. A: 28yo -->P1 PPD#1 s/p TVSD viable male 2nd degree perineal laceration - intact P: Continue routine pp care and medications. Evaluate for discharge home tomorrow. Objective - Vital Signs/Intake & Output Vital Signs: Vital Signs x48h Temp Pulse Resp BP Pulse Ox 04/05/19 04:49 36.9 C 70 18 117/93 H 98 Intake & Output: Intake & Output 04/02/19 04/03/19 04/04/19 04/05/19 23:59 23:59 23:59 23:59 Intake Total 2507.5 500 Output Total 1100 Balance 1407.5 500 - Lab Results Fish Bones: 04/03/19 22:50
[2019-04-05] MEDS: ACETAMINOPHEN 500 MG TABLET PO PRN ×2 (12:21→20:04)
[2019-04-06] MEDS: IBUPROFEN 600 MG TABLET PO SCH ×2 (01:54→09:00)
[2019-04-06] MEDS: ACETAMINOPHEN 500 MG TABLET PO PRN (06:54)
--- NOTE | 2019-04-06 07:25 | PROVIDER PROGRESS NOTE ---
Subjective - Subjective Subjective: FINAL PROGRESS NOTE: S: BOnding well with baby. without difficulty. Pain well controlled with oral medications. Bleeding decreased and is light. Feeling well overall and excited about being able to go home today. O: BP 135/73, T 37.1, RR 16, HR 76 Heart RRR w/o M/G/R, lungs CTAB, abdomen soft and nontender with fundus firm at U-1, perineum intact and repair with mild edema, light lochia rubra, bilateral LE's no edema A: 28yo -->P1 PPD#2 s/p TSVD of viable male infant 2nd degree perineal laceration - intact P: Reviewed pp self care and warning s/sx. Advised continuation of PNV while . Advised continuation of ibuprofen and tylenol OTC PRN pain F/u with myself in the clinic in 1 week for support visit and in 3 weeks for routine pp visit or sooner PRN. Pt verbalized understanding and agrees to above plan. She denies further questions or concerns at this time. Objective - Vital Signs/Intake & Output Vital Signs: Vital Signs x48h Temp Pulse Resp BP Pulse Ox 04/06/19 00:02 37.1 C 76 16 135/73 H 98 Intake & Output: Intake & Output 04/03/19 04/04/19 04/05/19 04/06/19 23:59 23:59 23:59 23:59 Intake Total 2507.5 1100 800 Output Total 1100 Balance 1407.5 1100 800 - Lab Results Fish Bones: 04/03/19 22:50
--- NOTE | 2019-04-06 07:31 | Discharge Plan ---
Discharge Plan Problem Reviewed?: Yes Disposition: Home, Self Care Condition: Good Diet: Regular Activity Restrictions: No Restrictions Shower Restrictions: No Driving Restrictions: No Weight Bearing: Full Weight No Smoking: If you smoke, Please STOP! Call for help. Follow-up with: Keila Oviedo CNM, ARNP [Provider Admit Priv/Credential] -
[2019-04-06 07:53] VITALS: BP 128/72
--- NOTE | 2019-04-06 08:11 | DISCHARGE SUMMARY ---
Physician: MYRTLE Givens DATE OF ADMISSION: 04/03/2019 DATE OF DISCHARGE: 04/06/2019 DIAGNOSES ON ADMISSION 1. A 28-year-old, G1, P0 at 39.5 weeks gestation. 2. Active labor. 3. Group B Streptococcus negative. DIAGNOSES ON DISCHARGE 1. A 28-year-old, G1, P1-0-0-1, status post spontaneous vaginal delivery on 04/04/2019. 2. . 3. Normal recovery. HISTORY OF PRESENT ILLNESS: She is a patient of [facility] who presented on 020 with complaints of contractions. Upon arrival, she was noted to be 3 cm dilated, 90% effaced, -3 station, vertex position with a bulging bag of chahal. heart rate category 1 throughout labor . Epidural per maternal request. She progressed to spontaneously deliver a viable male at ap proximately 10:49. Apgars were 8 and 8 at 1 and 5 minutes respectively. There was a 65 second shoul roman dystocia, which was relieved with a combination of Jossue and deliver the posterior arm. EBL 200 mL. The perineum, vagina and cervix were inspected and found to have a second-degree laceration, which was repaired using 4-0 Vicryl in standard fashion under sterile conditions. She has been doing well in her course. She is urinating without difficulty and her lochia is normal. Her pain is well controlled with oral medications. She will be discharged home today on day 2 with instructions to continue her vitamin while , and to cont inue ibuprofen and Tylenol [id number] as needed for pain management. She intends to follow up with myself in 1 week for support and in 3 weeks for routine visit or sooner if needed. She has been given precautions to call if she has any worsening fevers, chills, abdominal pa in, increased bleeding or foul-smelling vaginal lochia. TD: 04/06/2019 07:33
[2019-04-06] MEDS: DOCUSATE SODIUM 100 MG CAPSULE PO PRN (09:00)
--- NOTE | 2019-04-06 15:20 | Labor Flowsheet ---
Labor Flowsheet Datetime Report Generated by CPN: 04/06/2019 15:20 Datetime: 04/04/2019 12:44 VITAL SIGNS NBP Sys/Che/Mean (mmHg): 121 : 79 : 89 Pulse: 169 LaborFlag: Labor Datetime: 04/04/2019 10:49 SpO2 (%): 100 Datetime: 04/04/2019 10:47 UTERINE ACTIVITY Monitor Mode: External Frequency (min): 1-3 Quality: Moderate Duration (sec): 60-90 Pattern: Normal: <= 5 Contractions in 10 Minutes Resting Tone (Palpate): Relaxed FHR Baseline Rate : 135 FHR Baseline Changes: Bradycardia Variability: Moderate 6-25 bpm Decelerations: Prolonged Category: Category II Comments: prolonged decel to 90's prior to delivery Datetime: 04/04/2019 10:41 VAGINAL EXAM Dilatation (cm): 10.0 STAGE 2 Pushing: Urge to Push Pushing Position: Pushing with Contractions Pushing Progress: Descent with Pushing Stage 2 Comments: Dr. Montes at bedside pushing with patient Datetime: 04/04/2019 10:35 MEDICATIONS Pitocin (milliunits): Discontinued Datetime: 04/04/2019 10:30 Accelerations: 15X15 Datetime: 04/04/2019 10:26 Anesthesia Comments: Robert here for epidural bolus Datetime: 04/04/2019 10:22 COMMUNICATION Provider Notified (Name): Dr. 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 Pain Assessment Comments: anesthesia notified for bolus Datetime: 04/04/2019 08:30 Effacement (%): 90 Datetime: 04/04/2019 07:44 Pain Coping: Sleeping Datetime: 04/04/2019 06:50 Epidural Procedure: Loading Dose Epidural Procedure Other: Pump Started Datetime: 04/04/2019 06:49 Pain Type: Crushing Pain Location: Abdomen; Back Datetime: 04/04/2019 06:41 Respirations: 18 Datetime: 04/04/2019 06:07 Anesthesia Level Check: T8- Ribs Datetime: 04/04/2019 05:42 Patient Care Comments: with peanut ball Datetime: 04/04/2019 05:14 ANESTHESIA Anesthesia Plans: Epidural Anesthesia Interview: E Datetime: 04/04/2019 05:13 Stage of : Labor Pain Presence: None/Denies Datetime: 04/04/2019 03:30 Monitor Interventions for FHR: Ultrasound Adjusted Datetime: 04/04/2019 03:16 Membranes Rupture Method: Artificial Amniotic Fluid Color: Clear Amniotic Fluid Amount: Moderate Vaginal Bleeding: None Cervix, Position: Anterior Datetime: 04/04/2019 02:14 MATERNAL ASSESSMENT Level of Consciousness: Fully Conscious DTR's/Clonus: No Clonus Headache: Denies Breath Sounds, Left: Clear and Equal Breath Sounds, Right: Clear and Equal Nausea/Vomiting: Denies RUQ Epigastric Pain: Denies Datetime: 04/04/2019 01:10 I/O Interventions: [place] Cath Inserted Datetime: 04/04/2019 01:00 Membrane Status: Bulging TEACHING Instructional Method: Verbal; Verbalized Understanding Plan of Care: Plan of Care Discussed Unit Routine: [place] to Room; Call [place]; Bed Labor/Induction: Labor Stages Pain Management: Epidural PTL/PROM: Hydration Datetime: 04/04/2019 00:08 Temperature Route: Oral Pain Goal: 0 Datetime: 04/04/2019 00:06 PROCEDURE TIME OUT Procedure Type: 1205 Datetime: 04/04/2019 00:00 Procedure Verify: Correct Patient Identity; Correct Side and Site are Marked; Accurate Procedure Co nsent Form Epidural Positioning: Sitting
== END 2019-04-06 14:30 | disposition home or self-care (01) | DRG 806 ==
LOC: WFO 22:03 → FBP 22:04 → WFO 22:49 → FBP 22:50 → OBS 04-04 14:27
PROVIDERS: ADMIT Nurse Practitioner Obstetrics & Gynecology; ATTEND Nurse Practitioner Obstetrics & Gynecology
PROC: 10E0XZZ Delivery of Products of Conception, External Approach (ICD-10-PCS; principal; 2019-04-04)
DX: O99.62 Diseases of the digestive system complicating childbirth (principal); K95.09 Other complications of gastric band procedure; Z37.0 Single live birth; O70.1 Second degree perineal laceration during delivery; O66.0 Obstructed labor due to shoulder dystocia; Z3A.39 39 weeks gestation of pregnancy; O36.8130 Decreased fetal movements, third trimester, not applicable or unspecified
CPT/HCPCS: 59025; 76819; 85025; 99212; 99213; A9270; G0378; J2795; J7120

== ENCOUNTER 2020-01-30 08:00 | Outpatient (CLI) | payer MEDICAID, OTHER ==
[2020-01-30 16:36] LABS: MUDS CUTOFF CONCENTRATIONS CUTOFF CONC BELOW:
[2020-01-30 16:48] LABS: AMPHETAMINE SCREEN,URINE NEGATIVE (NEGATIVE); BENZODIAZEPINES SCREEN, URINE NEGATIVE (NEGATIVE); COCAINE SCREEN URINE NEGATIVE (NEGATIVE); METHAMPHETAMINES SCREEN, URINE NEGATIVE (NEGATIVE); OPIATE SCREEN, URINE NEGATIVE (NEGATIVE); THC CANNABINOID SCREEN, URINE NEGATIVE (NEGATIVE); TRICYCLIC ANTIDEPRESSANT,URINE NEGATIVE (NEGATIVE)
[2020-01-30 16:49] LABS: BARBITURATE SCREEN,UR NEGATIVE (NEGATIVE); METHADONE SCREEN, URINE NEGATIVE (NEGATIVE); OXYCODONE SCREEN, URINE NEGATIVE (NEGATIVE); PROPOXYPHENE SCREEN, URINE NEGATIVE (NEGATIVE)
== END 2020-01-30 23:59 | disposition home or self-care (01) ==
LOC: LAB.WC 08:00
PROVIDERS: ATTEND Obstetrics & Gynecology
DX: Z32.01 Encounter for pregnancy test, result positive (principal)
CPT/HCPCS: 80306

== ENCOUNTER 2020-02-03 15:03 | Emergency (ER) | payer OTHER ==
--- NOTE | 2020-02-03 17:02 | ED Physician Documentation ---
History of Present Illness - Stated complaint Stated Complaint: FEMALE - Chief complaint Chief Complaint: Abd Pain - History obtained from History obtained from: Patient - Additonal information Additional information: 29-year-old female who is approximately 5 weeks comes to the emergency department with vaginal spotting and now heavy bleeding. Patient reports that she began having light spotting about 3 days ago but over the last 24 hours she has been having menstrual-like flow. Mild cramping but no focal abdominal pain. Patient's blood type is A positive LMP 12/27/2019 G1, P1. OB Dr. Keila Oviedo. Review of Systems Constitutional: denies: Fever, Chills Eyes: reports: Reviewed and negative Ears: reports: Reviewed and negative Throat: reports: Reviewed and negative Cardiac: reports: Reviewed and negative Respiratory: reports: Reviewed and negative GI: reports: Reviewed and negative : reports: Vaginal bleeding, Reviewed and negative. denies: Dysuria, Freque ncy, Hesitancy Skin: reports: Reviewed and negative Musculoskeletal: reports: Reviewed and negative Neurologic: reports: Generalized weakness PD PAST MEDICAL HISTORY - Past Medical History Cardiovascular: None Respiratory: None Neuro: None Endocrine/Autoimmune: None GI: None : None Musculoskeletal: None Derm: None - Allergies Allergies/Adverse Reactions: Allergies Allergy/AdvReac Type Severity Reaction Status Date / Time No Known Drug Allergies Allergy Verified 04/04/19 08:55 - Social History Smoking Status: Never smoker PD ED PE NORMAL - General General: Alert and oriented X 3, No acute distress - HEENT HEENT: PERRL - Cardiac Cardiac: RRR, No murmur - Respiratory Respiratory: Clear bilaterally - Abdomen Abdomen: Normal bowel sounds, Soft, Non tender, Non distended Results - Vitals Vitals: Vital Signs - 24 hr 02/03/20 02/03/20 15:21 17:54 Temperature 36.7 C 37.1 C Heart Rate 74 70 Respiratory 18 18 Rate Blood Pressure 129/74 131/87 H O2 Saturation 100 99 Oxygen O2 Source Room air - Labs Labs: Laboratory Tests 02/03/20 02/03/20 02/03/20 16:56 16:56 16:56 WBC 8.2 RBC 4.71 Hgb 11.9 L Hct 37.7 MCV 80.0 L MCH 25.3 L MCHC 31.6 L RDW 15.1 H Plt Count 340 MPV 11.7 H Neut # (Auto) 5.5 Lymph # (Auto) 2.2 [place] # (Auto) 0.4 Eos # (Auto) 0.0 Baso # (Auto) 0.0 Absolute Nucleated RBC 0.00 Nucleated RBC % 0.0 Sodium 136 Potassium 3.9 Chloride 102 Carbon Dioxide 24 Anion Gap 10.0 BUN 14 Creatinine 0.7 Estimated GFR (MDRD) 98 Glucose 94 Calcium 9.2 Total Bilirubin 0.7 AST 16 ALT 14 Alkaline Phosphatase 53 Total Protein 8.2 Albumin 4.6 Globulin 3.6 Albumin/Globulin Ratio 1.3 Lipase 40 HCG, Quant 675.67 Urine Color Urine Clarity Urine pH Ur Specific Axis Urine Protein Urine Glucose (UA) Urine Ketones Urine Occult Blood Urine Nitrite Urine Bilirubin Urine Urobilinogen Ur Leukocyte Esterase Urine RBC Urine WBC Ur Squamous Epith Cells Urine Bacteria Ur Microscopic Review Urine Culture Comments 02/03/20 17:33 WBC RBC Hgb Hct MCV MCH MCHC RDW Plt Count MPV Neut # (Auto) Lymph # (Auto) [place] # (Auto) Eos # (Auto) Baso # (Auto) Absolute Nucleated RBC Nucleated RBC % Sodium Potassium Chloride Carbon Dioxide Anion Gap BUN Creatinine Estimated GFR (MDRD) Glucose Calcium Total Bilirubin AST ALT Alkaline Phosphatase Total Protein Albumin Globulin Albumin/Globulin Ratio Lipase HCG, Quant Urine Color RED/BLOODY Urine Clarity CLOUDY Urine pH 6.0 Ur Specific Axis 1.025 Urine Protein 100 H Urine Glucose (UA) NEGATIVE Urine Ketones NEGATIVE Urine Occult Blood LARGE H Urine Nitrite NEGATIVE Urine Bilirubin NEGATIVE Urine Urobilinogen 0.2 (NORMAL) Ur Leukocyte Esterase NEGATIVE Urine RBC TNTC H Urine WBC 0-3 Ur Squamous Epith Cells MOD Squamous H Urine Bacteria Few Ur Microscopic Review INDICATED Urine Culture Comments NOT INDICATED - Rads (name of study) pelvic US Radiology: See rad report, Other (No findings of intrauterine . No secondary findings to suggest ectopic ) PD MEDICAL DECISION MAKING - ED course Complexity details: reviewed results, re-evaluated patient, considered differential, d/w patient ED course: 29-year-old female presents the emergency department with 3 days of what was initially light vaginal spotting but is now menstrual vaginal bleeding in early . Her serum hCG today is 675. This is well below the discriminatory threshold. Ultrasound did not reveal any findings of an intrauterine . In addition there were no signs of a ectopic . She has no focal lower pelvic pain. She will need to have her hormone levels repeated in 48 to 72 hour s. I have discussed with on-call OB Dr. Monets. She has arranged for the patient to come in Thursday to have her serial hCG repeated. She will also asked the clinic RN and Dr. Garduno to follow-up with the patient. Patient was advised to return to the emergency department if she has severe vaginal bleeding, feels faint or lightheaded, has a racing heart suddenly severe or different lower abdominal pain. Departure - Departure Disposition: Home, Self Care Clinical Impression: Threatened miscarriage in early , Vaginal bleeding affecting early Condition: Stable Record reviewed to determine appropriate education?: Yes Instructions: ED Miscarriage Poss Comments: You were seen today for vaginal bleeding in early . Your hormone level today is 675. At this level it is typically too low for us to see signs of in the uterus. We would like you to return on Thursday to have your hormone levels repeated. Dr. Montes has arranged for this to be done. The clinic nurse and Dr. Oviedo should be getting in contact with you early this week. At this time if you are having a miscarriage there is no treatment that is necessary. If you develop severe vaginal bleeding, have any fevers suddenly severe lower pelvic pain have a racing heart or feel faint please return immediately to the emergency department
[2020-02-03 17:12] LABS: BASOPHILS % (AUTO) 0.5 %; EOSINOPHILS % (AUTO) 0.1 %; HGB - HEMOGLOBIN 11.9 g/dL (12.0-16.0); LYMPHOCYTES # (AUTO) 2.2 10^3/uL (1.5-3.5); MEAN CORPUSCULAR HEMOGLOBIN 25.3 pg (27.0-31.0); MEAN CORPUSCULAR HGB CONC 31.6 g/dL (32.0-36.0); MEAN PLATELET VOLUME 11.7 fL (7.9-10.8); MONOCYTES # (AUTO) 0.4 10^3/uL (0.0-1.0); NEUTROPHILS # (AUTO) 5.5 10^3/uL (1.5-6.6); PLT - PLATELET COUNT 340 10^3/uL (130-450); RED BLOOD COUNT 4.71 10^6/uL (4.20-5.40); RED CELL DISTRIBUTION WIDTH 15.1 % (12.0-15.0); WHITE BLOOD COUNT 8.2 x10^3/uL (4.8-10.8)
[2020-02-03 17:26] LABS: ALBUMIN 4.6 g/dL (3.2-5.5); ALBUMIN/GLOBULIN RATIO 1.3 (1.0-2.2); BILIRUBIN,TOTAL 0.7 mg/dL (0.2-1.0); CALCIUM 9.2 mg/dL (8.5-10.3); CREATININE 0.7 mg/dL (0.4-1.0); TOTAL PROTEIN 8.2 g/dL (6.7-8.2)
[2020-02-03 17:47] LABS: BILIRUBIN,URINE NEGATIVE (NEGATIVE); GLUCOSE, URINE (UA) NEGATIVE (NEGATIVE); KETONES,URINE (UA) NEGATIVE (NEGATIVE); LEUKOCYTE ESTERASE, URINE NEGATIVE (NEGATIVE); NITRITE,URINE NEGATIVE (NEGATIVE); OCCULT BLOOD,URINE LARGE (NEGATIVE); PROTEIN,URINE 100 mg/dL (NEGATIVE); UROBILINOGEN,URINE 0.2 (NORMAL) E.U./dL (NORMAL)
[2020-02-03 17:51] LABS: CLARITY,URINE CLOUDY (CLEAR); RBC,URINE TNTC /HPF (0-5)
[2020-02-03 17:52] LABS: BACTERIA,URINE Few /HPF (None Seen); SQUAMOUS EPITHELIAL CELL,UR MOD Squamous (<= Few)
[2020-02-03 17:54] VITALS: BP 131/87
--- NOTE | 2020-02-03 18:34 | Ultrasound Report ---
PROCEDURE: OB Transvaginal INDICATIONS: vaginal bleeding 1st trimester OUTSIDE/PRIOR DATING DATA: Last menstrual period (LMP): 12/27/2019. LMP-based estimated date of delivery (AVERY): 10/02/2020. TECHNIQUE: Real-time scanning was performed of the fetus and maternal pelvic organs, with image documentation. T ransvaginal imaging was performed. COMPARISON: None. FINDINGS: There is a tiny intrauterine saclike structure measuring approximately 2.5 x 1.2 x 1.4 mm. This is visualized near the lower uterine segment. Endometrial thickness measured 18 mm with possibl e decidual reaction. Otherwise, no definite intrauterine gestation identified. Embryo: No definite intrauterine gestation. No pole. No cardiac activity identified. No yolk sac seen. Maternal organs: Left ovary measures 2.0 x 1.6 x 2.0 cm. Left ovarian volume measures approximately 3 .4 mL. No ovarian or adnexal mass lesions. Right ovary measures 3.0 x 2.3 x 4.3 cm with ovarian volum e of approximately 15.7 mL. There is a possible right corpus luteal cyst measuring 2.2 x 1.9 x 2.3 cm . No suspicious solid adnexal/ovarian mass. No evidence for abnormal pelvic free fluid or hemorrhage. Limited images through the kidneys demonstrate no hydronephrosis. IMPRESSION: 1. Tiny endometrial saclike structure noted in the lower uterine segment measuring approximately 0.2 cm in size. This is too small to further delineate. This may represent a very early gestational sac v ersus nabothian cyst. Recommend continued close clinical surveillance and serial quantitative hCG allie surements. Short interval follow-up imaging as needed. Although less likely, an ectopic not completely excluded given presence of a positive test. 2. Likely right corpus luteal cyst. No suspicious solid ovarian/adnexal mass lesions identified. Reviewed by: Adán Stevens MD on 02/03/2020 6:33 PM PST Approved by: Adán Stevens MD on 02/03/2020 6:33 PM PST Station ID: [id number]
== END 2020-02-03 18:43 | disposition home or self-care (01) ==
LOC: ED 15:03
DX: O20.0 Threatened abortion (principal); Z3A.01 Less than 8 weeks gestation of pregnancy
CPT/HCPCS: 36415; 80053; 81001; 81003; 83690; 84702; 85025; 86900; 86901; 87086; 99284

== ENCOUNTER 2020-02-06 08:00 | Outpatient (CLI) | payer OTHER | END 2020-02-06 08:01 | disposition home or self-care (01) | LOC: LAB 08:00 | PROVIDERS: ATTEND Obstetrics & Gynecology | DX: Z32.01 Encounter for pregnancy test, result positive (principal) | CPT/HCPCS: 36415; 84702 ==

== ENCOUNTER 2020-07-13 20:52 | Outpatient (CLI) | payer OTHER ==
--- NOTE | 2020-07-13 22:23 | Ultrasound Report ---
PROCEDURE: OB First Trimester INDICATIONS: + PREG TEST OUTSIDE/PRIOR DATING DATA: Last menstrual period (LMP): 04/24/2020. LMP-based estimated date of delivery (AVERY): 01/29/2021. First dating scan (date and location): 07/13/2020. Estimated date of delivery (AVERY) from first dating scan: 01/27/2021. The below data below was generated using the ultrasound generated AVERY of 01/27/2021 TECHNIQUE: Real-time scanning was performed of the fetus and maternal pelvic organs, with image documentation. COMPARISON: None FINDINGS: Embryo: There is a gestational sac in the uterine fundus measuring 5.9 cm mean sac diameter. Within the gestational sac there is a fetus measuring 4.9 cm crown-rump length. Average ultrasound age is 11 weeks 5 days. heart rate measured at 164 bpm. Small subchorionic hemorrhage measuring approxim ately 2.5 cm. Measurement variability in dating: +/- 4 weeks by LMP, +/- 7 days by mean sac diameter (use before 6 weeks gestation if crown-rump length not able to be measured), +/- 5 days by crown-rump length (6-12 weeks gestation). Maternal organs: Ovaries are normal. Left corpus luteum cyst.. IMPRESSION: Single live intrauterine gestation with average ultrasound age of 11 weeks 5 days. Reviewed by: Brenden Goetz MD on 07/13/2020 10:22 PM PDT Approved by: Brenden Goetz MD on 07/13/2020 10:22 PM PDT Station ID: [id number]
== END 2020-07-13 20:53 | disposition home or self-care (01) ==
LOC: DI 20:52
PROVIDERS: ATTEND Nurse Practitioner Obstetrics & Gynecology
DX: Z32.01 Encounter for pregnancy test, result positive (principal)

== ENCOUNTER 2020-07-17 08:00 | Outpatient (CLI) | payer OTHER, MEDICAID ==
[2020-07-17 21:06] LABS: CHLAMYDIA TRACHOMATIS DNA NEGATIVE (NEGATIVE); NEISSERIA GONORRHOEAE DNA NEGATIVE (NEGATIVE); TRICHOMONAS VAGINALIS DNA NEGATIVE (NEGATIVE)
== END 2020-07-17 23:59 | disposition home or self-care (01) ==
LOC: LAB.WC 08:00
PROVIDERS: ATTEND Nurse Practitioner Obstetrics & Gynecology
DX: Z11.3 Encounter for screening for infections with a predominantly sexual mode of transmission (principal)
CPT/HCPCS: 87491; 87591; 87661

== ENCOUNTER 2020-07-17 10:25 | Outpatient (CLI) | payer OTHER ==
[2020-07-17 10:56] LABS: BASOPHILS % (AUTO) 0.5 %; EOSINOPHILS % (AUTO) 0.3 %; HGB - HEMOGLOBIN 9.5 g/dL (12.0-16.0); LYMPHOCYTES # (AUTO) 2.3 10^3/uL (1.5-3.5); LYMPHOCYTES % (AUTO) 29.2 %; MEAN CORPUSCULAR HGB CONC 30.6 g/dL (32.0-36.0); MEAN CORPUSCULAR VOLUME 71.8 fL (81.0-99.0); MEAN PLATELET VOLUME 11.5 fL (7.9-10.8); MONOCYTES # (AUTO) 0.4 10^3/uL (0.0-1.0); MONOCYTES % (AUTO) 5.3 %; NEUTROPHILS # (AUTO) 5.1 10^3/uL (1.5-6.6); NEUTROPHILS % (AUTO) 64.6 %; PLT - PLATELET COUNT 382 10^3/uL (130-450); RED BLOOD COUNT 4.32 10^6/uL (4.20-5.40); RED CELL DISTRIBUTION WIDTH 16.9 % (12.0-15.0); WHITE BLOOD COUNT 7.9 x10^3/uL (4.8-10.8)
[2020-07-17 11:00] LABS: VBG PH 7.402 (7.31-7.41)
[2020-07-17 11:01] LABS: CALCIUM, IONIZED 1.13 mmol/L (1.15-1.33)
[2020-07-17 11:36] LABS: % IRON SATURATION 3 % (20-50); IRON 18 ug/dL (28-170); TOTAL IRON BINDING CAPACITY 519 ug/dL (250-450); TRANSFERRIN 371 mg/dL (192-382)
[2020-07-17 11:52] LABS: FERRITIN 4.9 ng/mL (11.0-306.8)
[2020-07-17 11:55] LABS: FOLATE 20.94 ng/mL (5.90 - >24.8)
[2020-07-20 09:56] LABS: HEPATITIS B SURFACE ANTIGEN NON-REACTIVE
[2020-07-20 09:58] LABS: HEPATITIS C ANTIBODY NON-REACTIVE
== END 2020-07-17 10:26 | disposition home or self-care (01) ==
LOC: LAB 10:25
PROVIDERS: ATTEND Nurse Practitioner Obstetrics & Gynecology
DX: Z34.90 Encounter for supervision of normal pregnancy, unspecified, unspecified trimester (principal); Z98.84 Bariatric surgery status; Z11.3 Encounter for screening for infections with a predominantly sexual mode of transmission
CPT/HCPCS: 36415; 82306; 82330; 82607; 82728; 82746; 83540; 84466; 85025; 86592; 86762; 86787; 86803; 86850; 86900; 86901; 87340; 87389; 87491; 87591; 87661

== ENCOUNTER 2020-08-16 08:00 | Outpatient (CLI) | payer OTHER, MEDICAID ==
[2020-08-16 15:58] LABS: MUDS CUTOFF CONCENTRATIONS CUTOFF CONC BELOW:
[2020-08-16 16:32] LABS: AMPHETAMINE SCREEN,URINE NEGATIVE (NEGATIVE); BARBITURATE SCREEN,UR NEGATIVE (NEGATIVE); BENZODIAZEPINES SCREEN, URINE NEGATIVE (NEGATIVE); COCAINE SCREEN URINE NEGATIVE (NEGATIVE); METHADONE SCREEN, URINE NEGATIVE (NEGATIVE); METHAMPHETAMINES SCREEN, URINE NEGATIVE (NEGATIVE); OPIATE SCREEN, URINE NEGATIVE (NEGATIVE); OXYCODONE SCREEN, URINE NEGATIVE (NEGATIVE); PROPOXYPHENE SCREEN, URINE NEGATIVE (NEGATIVE); THC CANNABINOID SCREEN, URINE NEGATIVE (NEGATIVE); TRICYCLIC ANTIDEPRESSANT,URINE NEGATIVE (NEGATIVE)
== END 2020-08-16 23:59 | disposition home or self-care (01) ==
LOC: LAB.WC 08:00
PROVIDERS: ATTEND Advanced Practice Midwife
DX: Z34.90 Encounter for supervision of normal pregnancy, unspecified, unspecified trimester (principal)
CPT/HCPCS: 80306; 87077; 87086; 87181

== ENCOUNTER 2020-08-29 10:46 | Outpatient (CLI) | payer OTHER ==
[2020-08-29 20:12] LABS: BACTERIAL VAGINOSIS DNA NEGATIVE (NEGATIVE); CANDIDA GLABRATA DNA NEGATIVE (NEGATIVE); CANDIDA GROUP DNA NEGATIVE (NEGATIVE); CANDIDA KRUSEI DNA NEGATIVE (NEGATIVE); TRICHOMONAS VAGINALIS DNA NEGATIVE (NEGATIVE)
== END 2020-08-29 10:47 | disposition home or self-care (01) ==
LOC: LAB.N 10:46
PROVIDERS: ATTEND Nurse Practitioner Obstetrics & Gynecology
DX: N76.0 Acute vaginitis (principal)
CPT/HCPCS: 87661; 87801

== ENCOUNTER 2020-09-11 08:43 | Outpatient (CLI) | payer OTHER ==
--- NOTE | 2020-09-12 06:28 | Ultrasound Report ---
PROCEDURE: OB Detailed Eval INDICATIONS: SUPERVISION OF OUTSIDE/PRIOR DATING DATA: Last menstrual period (LMP): 04/24/2020. LMP-based estimated date of delivery (AVERY): 01/29/2021. First dating scan (date and location): 07/13/2020. Estimated date of delivery (AVERY) from first dating scan: 01/27/2021. The below data below was generated using the above AVERY of 01/27/2021 TECHNIQUE: Real-time scanning was performed of the fetus, with image documentation and biometric measurements. Endovaginal scanning: Not needed COMPARISON: 07/13/2020 FINDINGS: General: A single living intrauterine gestation is present. Presentation: Breech Placenta: Placental position is posterior, without previa. Amniotic fluid index: 10.0 cm, normal for gestational age. heart rate: 141 beats per minute. Maternal cervical canal: 4.3 cm long; normal length is 2.5 cm or more. biometrics: Biparietal diameter: 4.7 cm, 20 weeks 1 day Head circumference: 17.8 cm, 20 weeks 2 days Abdominal circumference: 15.0 cm, 20 weeks 2 days Femur length: 3.3 cm, 20 weeks 2 days Estimated gestational age from initial scan: 20 weeks 2 days. Composite gestational age from present scan: 20 weeks 4 days Estimated weight and percentile: 343 g, 44th percentile Measurement variability in biometric dating: +/- 10 days from 12-20 weeks gestation, +/- 2 weeks from 20-30 weeks gestation, +/- 3 weeks at 30 weeks gestation or later. Anatomic survey: Neuro: Ventricles are normal at less than 10 mm. Cisterna magna is normal at 3-11 mm. Cerebellum i s normal in size and morphology. Nuchal skin fold: Normal at less than 6 mm between 14 and 20 weeks gestational age. Face: Nose and lips, facial profile are normal. Spine: No evidence for spina bifida. Heart: 4-chambered heart is present, with normal ventricular outflow tracts that were somewhat diffi cult to clearly visualize. Diaphragm: Diaphragm is intact. Stomach: Left-sided stomach is present. Kidneys: No hydronephrosis. Normal is less than 5 mm in 2nd trimester, less than 7 mm in 3rd trimester. Cord: 3 vessel cord has orthotopic insertion. Bladder: Normal in size. Extremities: All 4 extremities are visualized. IMPRESSION: Appropriate interval growth, no anomaly seen, delivery date projected to be centered on 021. Breech presentation at this time. Reviewed by: Elmer Aleman MD on 09/12/2020 6:27 AM PDT Approved by: Elmer Aleman MD on 09/12/2020 6:27 AM PDT Station ID: [id number]
== END 2020-09-11 08:44 | disposition home or self-care (01) ==
LOC: DI 08:43
PROVIDERS: ATTEND Advanced Practice Midwife
DX: O32.1XX0 Maternal care for breech presentation, not applicable or unspecified (principal); Z3A.20 20 weeks gestation of pregnancy; Z36.8A Encounter for antenatal screening for other genetic defects
CPT/HCPCS: 36415; 81599

== ENCOUNTER 2020-09-11 10:31 | Outpatient (CLI) | payer OTHER | END 2020-09-11 10:32 | disposition home or self-care (01) | LOC: LAB 10:31 | PROVIDERS: ATTEND Advanced Practice Midwife | DX: Z34.90 Encounter for supervision of normal pregnancy, unspecified, unspecified trimester (principal); Z36.8A Encounter for antenatal screening for other genetic defects | CPT/HCPCS: 36415; 81599 ==

== ENCOUNTER 2020-10-01 09:24 | Outpatient (CLI) | payer OTHER ==
[2020-10-01 12:43] LABS: FERRITIN 10.8 ng/mL (11.0-306.8)
[2020-10-01 12:51] LABS: FOLATE < 1.00 ng/mL (5.90 - >24.8)
[2020-10-01 13:43] LABS: % IRON SATURATION 11 % (20-50); IRON 51 ug/dL (28-170); TOTAL IRON BINDING CAPACITY 461 ug/dL (250-450); TRANSFERRIN 329 mg/dL (192-382)
== END 2020-10-01 09:25 | disposition home or self-care (01) ==
LOC: LAB.N 09:24
PROVIDERS: ATTEND Nurse Practitioner Obstetrics & Gynecology
DX: Z98.84 Bariatric surgery status (principal)
CPT/HCPCS: 36415; 82306; 82330; 82607; 82728; 82746; 83540; 84466

== ENCOUNTER 2020-10-07 11:25 | Outpatient (CLI) | payer OTHER ==
--- NOTE | 2020-10-07 15:23 | Ultrasound Report ---
PROCEDURE: OB F/U or Repeat INDICATIONS: SUPERVISION OF OUTSIDE/PRIOR DATING DATA: Last menstrual period (LMP): 04/24/2020. LMP-based estimated date of delivery (AVERY): 01/29/2021. First dating scan (date and location): 07/13/2020. Estimated date of delivery (AVERY) from first dating scan: 01/27/2021. The below data below was generated using the above AVERY of 01/27/2021 TECHNIQUE: Real-time scanning was performed of the fetus, with image documentation and biometric measurements. Endovaginal scanning: Not needed. COMPARISON: September 11, 2020 FINDINGS: General: A single living intrauterine gestation is present. Presentation: Vertex Placenta: Placental position is posterior, without previa. Amniotic fluid index: 10.5 cm, normal for gestational age. heart rate: 155 beats per minute. Maternal cervical canal: 4.2 cm long; normal length is 2.5 cm or more. biometrics: Biparietal diameter: 5.7 cm, 23 weeks 4 days Head circumference: 22.1 cm, 24 weeks 1 day Abdominal circumference: 20 cm, 24 weeks 3 days Femur length: 4.2 cm, 23 weeks 4 days Estimated gestational age from initial scan: not applicable. Composite gestational age from present scan: 24 weeks 0 days Estimated weight and percentile: 652 g, 42nd percentile Measurement variability in biometric dating: +/- 10 days from 12-20 weeks gestation, +/- 2 weeks from 20-30 weeks gestation, +/- 3 weeks at 30 weeks gestation or more. Other: skin line not well seen due to positioning. Right and left ventricular outflow tra cts appear within normal limits. IMPRESSION: 1. Estimated weight of 652 g corresponding with the 42nd percentile. 2. skin line not well seen due to positioning. Right and left ventricular outflow tracts appear within normal limits. Reviewed by: Jermaine Cole on 10/07/2020 2:22 PM GLOR[facility] Approved by: Jermaine Cole on 10/07/2020 2:22 PM GLORIA Station ID: [id number]
== END 2020-10-07 11:26 | disposition home or self-care (01) ==
LOC: DI 11:25
PROVIDERS: ATTEND Nurse Practitioner Obstetrics & Gynecology
DX: O99.842 Bariatric surgery status complicating pregnancy, second trimester (principal); Z3A.24 24 weeks gestation of pregnancy

== ENCOUNTER 2020-11-05 10:15 | Outpatient (CLI) | payer OTHER ==
[2020-11-05 15:52] LABS: BILIRUBIN,URINE NEGATIVE (NEGATIVE); GLUCOSE, URINE (UA) NEGATIVE (NEGATIVE); KETONES,URINE (UA) TRACE mg/dL (NEGATIVE); LEUKOCYTE ESTERASE, URINE NEGATIVE (NEGATIVE); NITRITE,URINE NEGATIVE (NEGATIVE); OCCULT BLOOD,URINE NEGATIVE (NEGATIVE); PH,URINE 7.5 PH (5.0-7.5); PROTEIN,URINE NEGATIVE (NEGATIVE); UROBILINOGEN,URINE 0.2 (NORMAL) E.U./dL (NORMAL)
[2020-11-05 15:59] LABS: AMORPHOUS SEDIMENT,UR Marked /LPF; BACTERIA,URINE Rare /HPF (None Seen); CLARITY,URINE CLOUDY (CLEAR); RBC,URINE 0-5 /HPF (0-5); SQUAMOUS EPITHELIAL CELL,UR FEW Squamous (<= Few); WBC,URINE 0-3 /HPF (0-5)
[2020-11-05 21:41] LABS: BACTERIAL VAGINOSIS DNA NEGATIVE (NEGATIVE); CANDIDA GLABRATA DNA NEGATIVE (NEGATIVE); CANDIDA GROUP DNA NEGATIVE (NEGATIVE); CANDIDA KRUSEI DNA NEGATIVE (NEGATIVE); TRICHOMONAS VAGINALIS DNA NEGATIVE (NEGATIVE)
== END 2020-11-05 23:59 | disposition home or self-care (01) ==
LOC: LAB 10:15
PROVIDERS: ATTEND Obstetrics & Gynecology
DX: R39.15 Urgency of urination (principal); N89.8 Other specified noninflammatory disorders of vagina
CPT/HCPCS: 81001; 87086; 87661; 87801

== ENCOUNTER 2020-11-13 09:41 | Outpatient (CLI) | payer OTHER ==
--- NOTE | 2020-11-13 16:34 | Ultrasound Report ---
PROCEDURE: OB F/U or Repeat INDICATIONS: SUPERVISION OF OUTSIDE/PRIOR DATING DATA: Last menstrual period (LMP): 04/24/2020. LMP-based estimated date of delivery (AVERY): 01/29/2021. First dating scan (date and location): 07/13/2020. Estimated date of delivery (AVERY) from first dating scan: 01/27/2021. The below data below was generated using the ultrasound derived AVERY of 01/27/2021 TECHNIQUE: Real-time scanning was performed of the fetus, with image documentation and biometric measurements. COMPARISON: 10/07/2020, 09/11/2020, 07/13/2020. FINDINGS: General: A single living intrauterine gestation is present. Presentation: Vertex Placenta: Placental position is posterior, without previa. Amniotic fluid index: 11.3 cm, within normal limits for gestational age. Largest pocket: 3.2 cm. heart rate: 144 beats per minute. Maternal cervical canal: 3.7 cm long; normal length is 2.5 cm or more. biometrics: Biparietal diameter: 7.3 cm, 29 weeks 1 day Head circumference: 20.2 cm, 30 weeks 6 days Abdominal circumference: 23.9 cm, 20 weeks 1 day Femur length: 5.3 cm, 20 weeks 1 day Estimated gestational age from initial scan: 29 weeks 2 days. Composite gestational age from present scan: 29 weeks 1 day Estimated weight and percentile: 1236 g, 14th percentile Measurement variability in biometric dating: +/- 10 days from 12-20 weeks gestation, +/- 2 weeks from 20-30 weeks gestation, +/- 3 weeks at 30 weeks gestation or more. IMPRESSION: 1. Single living imaging demonstrating interval growth with estimated weight at the 1 4th percentile, compared to 42nd percentile on the previous study. Findings may reflect developing in trauterine growth restriction and clinical correlation as well as short-term follow-up is recommended . Reviewed by: Alo Jung MD on 11/13/2020 4:33 PM PDT Approved by: Alo Jung MD on 11/13/2020 4:33 PM PDT Station ID: [id number]
== END 2020-11-13 09:42 | disposition home or self-care (01) ==
LOC: DI 09:41
PROVIDERS: ATTEND Nurse Practitioner Obstetrics & Gynecology
DX: Z34.03 Encounter for supervision of normal first pregnancy, third trimester (principal); Z98.84 Bariatric surgery status